=== PATIENT | female | born 1950 | race Caucasian/White ===

== ENCOUNTER 2021-08-09 19:12 | Emergency (ER) | payer OTHER ==
[~2021-08-09] VITALS: Ht 157.5 cm; Wt 63.5 kg
[2021-08-09 19:46] VITALS: BP_SYST 122
--- NOTE | 2021-08-09 19:50 | NUR ---
Pt brought by self, A&Ox4, pt presents to ER with skin tear / abrassions on R forehead after trip and fall, skin pink and warm, cap refill <3, VSS, no KO, will cont to monitor.
--- NOTE | 2021-08-09 20:00 | NUR ---
Dr Brower evaluating patient in the triage room
--- NOTE | 2021-08-09 20:10 | NUR ---
Dr Brower applying dermabond on forehead,well tolerated
[2021-08-09] MEDS ORDERED: ACET325T53 PO (20:51)
[2021-08-09] MEDS ORDERED: CEPH250C PO (20:51)
[2021-08-09 21:13] VITALS: BP_SYST 122
--- NOTE | 2021-08-09 21:14 | NUR ---
Patient given written and verbal discharge instructions and verbalizes understanding. ER MD discussed with patient the results and treatment provided. Patient in stable condition. ID arm band removed. Rx of Keflex and Tylenol given. Patient educated on pain management and to follow up with PMD. Pain Scale 2/10. Opportunity for questions provided and answered. Medication side effect fact sheet provided.
== END 2021-08-09 21:14 | disposition home or self-care (01) ==
LOC: SED 19:12
DX: S01.81XA Laceration without foreign body of other part of head, initial encounter (principal); S09.90XA Unspecified injury of head, initial encounter; Z79.899 Other long term (current) drug therapy; W01.0XXA Fall on same level from slipping, tripping and stumbling without subsequent striking against object, initial encounter; Y93.89 Activity, other specified; Y92.89 Other specified places as the place of occurrence of the external cause; Y99.8 Other external cause status
CPT/HCPCS: 99283